=== PATIENT | female | born 1995 | race Caucasian/White ===

== ENCOUNTER 2017-05-17 12:15 | Emergency (ER) | payer BC ==
[2017-05-17] MEDS ORDERED: IBUPROFEN 600 MG TABLET (FP) PO ONE ×2 (12:20→12:50)
[2017-05-17 12:28] VITALS: BP 127/74; PULSE 83; TEMP 98.3; BMI 26.5
--- NOTE | 2017-05-17 12:51 | PDOC ---
History of Present Illness - General Chief Complaint: Injury Stated Complaint: RIGHT SHOULDER INJURY Time Seen by Provider: 05/17/17 12:16 History Source: Patient Exam Limitations: No Limitations - History of Present Illness Initial Comments: 05/17/17 12:50 21-year-old female with a history of ALL here today complaining of right shoulder pain following injury 1 week ago. Patient states she was using an exercise machine and pain to the lateral aspect of her right shoulder on the equipment. Had minimal pain initially but over the last week pain has become more intense. Pain is exacerbated by elevating her arm in abduction and anteriorly today noted she had a pinching or sharp pain radiating up the trapezius muscle towards her neck denies any new weakness or numbness no elbow or wrist pain. No previous surgery on that shoulder other injuries in the past. Patient did not repeat for. Prior to arrival no associated swelling or ecchymosis fevers or chills. Past History - Past Medical History Allergies/Adverse Reactions: Allergies Allergy/AdvReac Type Severity Reaction Status Date / Time morphine Allergy Severe Difficulty Verified 07/27/16 11:48 Breathing Home Medications: Ambulatory Orders Lo Loestrin Fe 1-10 Tablet 1 tab PO DAILY 05/27/16 Ibuprofen [Motrin -] 600 mg PO TID #90 tablet 05/17/17 Cancer: Yes (ALL BONE MARROW TRANSPLANT) COPD: No - Immunization History Immunization Up to Date: Yes - Suicide/Smoking/Psychosocial Hx Smoking History: Never smoked Information on smoking cessation initiated: No Hx Alcohol Use: No Drug/Substance Use Hx: No Substance Use Type: None Review of Systems - Review of Systems Constitutional: No: Chills Respiratory: No: Cough, Orthopnea Cardiac (ROS): No: Chest Pain ABD/GI: No: Abdominal Distended Musculoskeletal: Yes: Joint Pain Integumentary: No: Bruising, Change in Color All Other Systems: Reviewed and Negative *Physical Exam - Vital Signs Last Vital Signs Temp Pulse Resp BP Pulse Ox 98.3 F 83 16 127/74 99 05/17/17 12:16 05/17/17 12:16 05/17/17 12:16 05/17/17 12:16 05/17/17 12:16 - Physical Exam Comments: 05/17/17 12:52 No acute distress awake and alert. Lungs are clear bilaterally. Heart is regular without any murmurs rubs or gallops. Abdomen is soft and nontender. Musculoskeletal: Right shoulder has anterior before meals joint tenderness to palpation. And lateral tenderness to palpation pain elicited at 90 abduction. Some pain with rotation. No associated ecchymosis or swelling no warmth. Elbow/ wrist FROM, NT. Distally neurovascularly intact ED Treatment Course - ADDITIONAL ORDERS Additional order review: Laboratory Results 05/17/17 12:28 Urine HCG, Qual Negative - RADIOLOGY Radiology Studies Ordered: Category Date Time Status SHOULDER-RIGHT [RAD] Stat Radiology 05/17/17 12:20 Ordered Medical Decision Making - Medical Decision Making 05/17/17 12:53 Status post right shoulder injury 1 week ago with pain in abduction and minimal tenderness on exam. Differential includes ac joint separation or tear or possible rotator cuff injury. We'll obtain x-rays to rule out fracture, pain control, and likely outpatient orthopedic follow-up. NSAIDs for treatment of pain *DC/Admit/Observation/Transfer Diagnosis at time of Disposition: Shoulder injury - Discharge Dispostion Disposition: HOME Condition at time of disposition: Improved - Prescriptions Prescriptions: Ibuprofen [Motrin -] 600 mg PO TID #90 tablet - Referrals Referrals: Boogie Trevino MD [Staff Physician] - - Patient Instructions Printed Discharge Instructions: Shoulder Sprain Additional Instructions: you should follow-up with orthopedist call Dr. Trevino call to schedule . You can take ibuprofen 600 mg every 8 hours as needed for pain. Avoid heavy lifting or activities which exacerbate your pain. Your x-rays are negative for any bony injuries. Return for any problems or concerns - Post Discharge Activity
== END 2017-05-17 13:26 | disposition home or self-care (01) ==
LOC: FER 12:15
DX: M25.511 Pain in right shoulder (principal); Z85.9 Personal history of malignant neoplasm, unspecified
CPT/HCPCS: 73030-TC-RT; 84703; 99282-25

== ENCOUNTER 2017-07-12 10:24 | Emergency (ER) | payer BC ==
[2017-07-12 10:55] VITALS: BP 120/71; PULSE 79; TEMP 97.8; BMI 19.2
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
[2017-07-12] MEDS ORDERED: ACETAMINOPHEN 325 MG TABLET (FP) PO ONE (12:04)
[2017-07-12] MEDS ORDERED: ACETAMINOPHEN 325 MG TABLET (FP) ONE (12:38)
== END 2017-07-12 13:27 | disposition home or self-care (01) ==
LOC: FER 10:24
DX: J34.89 Other specified disorders of nose and nasal sinuses (principal); W20.8XXA Other cause of strike by thrown, projected or falling object, initial encounter; Y93.89 Activity, other specified; Y92.9 Unspecified place or not applicable
CPT/HCPCS: 70486-TC; 84703; 99282-25

== ENCOUNTER 2017-08-25 01:23 | Emergency (ER) | payer BC ==
[2017-08-25 01:50] VITALS: BP 136/82; PULSE 97; TEMP 98.5; BMI 26.4
[2017-08-25] MEDS ORDERED: IBUPROFEN 600 MG TABLET (FP) PO ONE ×2 (01:55→02:46)
--- NOTE | 2017-08-25 01:55 | PDOC ---
History of Present Illness - General Chief Complaint: Chest Pain Stated Complaint: CHEST PAIN Time Seen by Provider: 08/25/17 01:42 - History of Present Illness Initial Comments: 08/25/17 02:09 The patient is a 21 year old female with a history of Leukemia s/p bone marrow transplant who presents for evaluation of chest pain. The patient reports onset of chest tightness and sharp sternal chest pain earlier this evening prompting her presentation to the ED for evaluation. 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 She notes that the pain is worse with certain movements. She otherwise denies fevers, chills, SOB, nausea, vomiting, abdominal pain, leg swelling, recent long travel, or changes with urination or bowel movements. Past History - Past Medical History Allergies/Adverse Reactions: Allergies Allergy/AdvReac Type Severity Reaction Status Date / Time morphine Allergy Severe Difficulty Verified 08/25/17 01:47 Breathing Home Medications: Ambulatory Orders Lo Loestrin Fe 1-10 Tablet 1 tab PO DAILY 05/27/16 Cancer: Yes (ALL BONE MARROW TRANSPLANT) COPD: No - Immunization History Immunization Up to Date: Yes - Suicide/Smoking/Psychosocial Hx Smoking History: Never smoked Have you smoked in the past 12 months: No Information on smoking cessation initiated: No Hx Alcohol Use: No Drug/Substance Use Hx: No Substance Use Type: None Review of Systems - Review of Systems Comments:: 08/25/17 02:11 Constitutional: No fevers, chills, fatigue, malaise HEENT: No Rhinorrhea, nasal congestion, visual changes Cardiovascular: Chest pain. No syncope, palpitations, lightheadedness Respiratory: No Cough, SOB, Hemoptysis, Gastrointestinal: No Abdominal pain, Nausea, Vomiting, Constipation, Diarrhea, Melena Genitourinary: No Dysuria, Frequency, Urgency, Hesitancy, Hematuria, Flank pain Musculoskeletal: No Myalgia, arthralgia Skin: No rashes, itching, bruising, pallor Neurologic: No Headache, Dizziness, Numbness, Weakness, or Tingling Psychiatric: No Hallucinations. No SI or HI *Physical Exam - Vital Signs Last Vital Signs Temp Pulse Resp BP Pulse Ox 98.5 F 97 H 20 136/82 96 08/25/17 01:47 08/25/17 01:47 08/25/17 01:47 08/25/17 01:47 08/25/17 01:47 - Physical Exam Comments: 08/25/17 02:11 General Appearance: Nourished. No Apparent Distress HEENT: No Pharyngeal Erythema, Tonsillar Exudate, Tonsillar Erythema Neck: No Cervical Lymphadenopathy Respiratory/Chest: Lungs Clear, Normal Breath Sounds. No Crackles, Rales, Rhonchi, Wheezing Cardiovascular: Regular Rhythm, Regular Rate. Reproducible tenderness to palpation along the sternal border. No Murmur, Gallops, Rubs Gastrointestinal/Abdominal: Normal Bowel Sounds, Soft. No Guarding, Rebound, Tenderness Musculoskeletal: No CVA Tenderness Extremity: Normal Capillary Refill Integumentary: Normal Color, Dry, Warm Neurologic: Fully Oriented, Alert, Normal Mood/Affect, Normal Response, Heart Score/ECG Review #1 ECG reviewed & interpreted by me at: 02:12 General ECG Interpretation: Sinus Rhythm, Normal Rate, Normal Intervals, No acute ischemic changes ED Treatment Course - LABORATORY CBC & Chemistry Diagram: 08/25/17 02:57 08/25/17 02:57 - RADIOLOGY Radiology Studies Ordered: Category Date Time Status CHEST PA & LAT [RAD] Stat Radiology 08/25/17 01:54 Ordered Medical Decision Making - Medical Decision Making 08/25/17 02:12 The patient is a 21 year old female with a history of Leukemia s/p bone marrow transplant who presents for evaluation of chest pain. Differential includes but is not limited to: Musculoskeletal, costocondritis, acs, pe, infectious, metabolic derangement. Given the patient's physical exam with reproducible tenderness, it is likely the patient's symptoms are due to a costochondritis. However we will obtain a cbc, cmp, troponin, d-dimer, ekg, and chest plain film to evaluate further. We will treat the patient with ibuprofen in the meantime and continue to monitor and reassess. 08/25/17 03:48 CBC, cmp, troponin, d-dimer are unremarkable. Chest plain film is unremarkable as preliminarily read by ER physician. It is likely the patient's symptoms are due to costochondritis. We are comfortable discharging the patient home at this time with primary care provider follow up. We discussed the results and the plan as well as return precautions with the patient who voiced understanding and is agreeable with the plan. *DC/Admit/Observation/Transfer Diagnosis at time of Disposition: Costochondritis - Discharge Dispostion Disposition: HOME Condition at time of disposition: Good Admit: No - Referrals Referrals: ON STAFF,NOT [Primary Care Provider] - - Patient Instructions Printed Discharge Instructions: DI for Costochondritis Additional Instructions: Please return to the ER if you experience concerning or worsening symptoms including worsening chest pain, difficulty breathing, or vomiting. Your lab results were normal here in the ER. It is likely your pain is due to musculoskeletal pain or costochondritis. You may use ibuprofen as needed at home to help manage your pain. Please call to schedule a follow up appointment with your primary care provider within 2-3 days to discuss your ER visit and further management of your symptoms. - Post Discharge Activity
[2017-08-25 03:11] LABS: BASO % 1.1 % (0-2.0); EOS % 0.4 % (0-4.5); HEMATOCRIT 40.6 % (32.4-45.2); HEMOGLOBIN 14.3 GM/dL (10.7-15.3); LYMPH % 24.9 % (8-40); MCHC 35.1 g/dl (32.0-36.0); MEAN CELL VOLUME 88.4 fl (80-96); MONO % 7.1 % (3.8-10.2); NEUT % 66.5 % (42.8-82.8); PLATELET COUNT 357 K/MM3 (134-434); RBC 4.59 M/mm3 (3.60-5.2); RDW 13.1 % (11.6-15.6); WHITE BLOOD COUNT 11.7 K/mm3 (4.0-10.0)
[2017-08-25 03:36] LABS: ANION GAP 13 (8-16); BILIRUBIN,TOTAL 0.4 mg/dL (0.2-1.0); BLOOD UREA NITROGEN 13 mg/dL (7-18); CALCIUM 8.9 mg/dL (8.5-10.1); CHLORIDE 108 mmol/L (98-107); CO2 22 mmol/L (21-32); CREATININE 0.7 mg/dL (0.55-1.02); GLUCOSE,RANDOM 73 mg/dL (74-106); POTASSIUM 3.5 mmol/L (3.5-5.1); SGOT/AST 11 U/L (15-37); SGPT/ALT 14 U/L (12-78); SODIUM 143 mmol/L (136-145); TOT PROT 7.4 g/dl (6.4-8.2)
[2017-08-25 03:38] LABS: ALK PHOS 65 U/L (45-117)
--- NOTE | 2017-08-25 16:39 | EKG ---
Test Reason : Blood Pressure : / mmHG Vent. Rate : 070 BPM Atrial Rate : 070 BPM P-R Int : 144 ms QRS Dur : 080 ms QT Int : 378 ms P-R-T Axes : 043 083 054 degrees QTc Int : 408 ms NORMAL SINUS RHYTHM WITH SINUS ARRHYTHMIA NORMAL ECG NO PREVIOUS ECGS AVAILABLE Confirmed by TINY BENSON, JANENE ([id number]) on 08/25/2017 4:39:02 PM Referred By: Confirmed By:JANENE FRANKS MD
== END 2017-08-25 04:01 | disposition home or self-care (01) ==
LOC: JER 01:23
DX: M94.0 Chondrocostal junction syndrome [Tietze] (principal); Z85.6 Personal history of leukemia
CPT/HCPCS: 36415; 71046-TC-FY; 80053; 82550; 84484; 84703; 85025; 85379; 93005; 93010; 99283-25

== ENCOUNTER 2017-09-28 15:44 | Emergency (ER) | payer BC ==
--- NOTE | 2017-09-28 16:04 | PDOC ---
Rapid Medical Evaluation Time Seen by Provider: 09/28/17 16:02 Medical Evaluation: Allergies Allergy/AdvReac Type Severity Reaction Status Date / Time morphine Allergy Severe Difficulty Verified 08/25/17 01:47 Breathing 09/28/17 16:03 I have performed a brief in-person evaluation of this patient. The patient presents with a chief complaint of: mid abd pain x 3 days, vomiting 6 days, went to urgent care, has RLQ tenderness today, r/o appy Pertinent physical exam findings: RLQ tenderness I have ordered the following: labs, urine, us The patient will proceed to the ED for further evaluation. Discharge Disposition - Diagnosis Abdominal pain - Referrals - Patient Instructions - Post Discharge Activity
[2017-09-28] MEDS ORDERED: ONDANSETRON *ODT* 4 MG TABLET SL ONE (16:05)
[2017-09-28 16:09] VITALS: TEMP 98.2; BMI 25.6
[2017-09-28] MEDS ORDERED: ONDANSETRON *ODT* 4 MG TABLET ONE (16:24)
[2017-09-28 16:30] LABS: BASO % 0.8 % (0-2.0); EOS % 0.5 % (0-4.5); HEMATOCRIT 40.3 % (32.4-45.2); HEMOGLOBIN 14.2 GM/dL (10.7-15.3); LYMPH % 23.8 % (8-40); MCHC 35.3 g/dl (32.0-36.0); MEAN CELL VOLUME 87.9 fl (80-96); MEAN PLT VOLUME 8.2 fl (7.5-11.1); NEUT % 67.9 % (42.8-82.8); PLATELET COUNT 366 K/MM3 (134-434); RBC 4.58 M/mm3 (3.60-5.2); RDW 13.1 % (11.6-15.6); WHITE BLOOD COUNT 7.9 K/mm3 (4.0-10.0)
[2017-09-28 17:01] LABS: ALBUMIN 4.3 g/dl (3.4-5.0); ALK PHOS 64 U/L (45-117); ANION GAP 6 (8-16); BILIRUBIN,TOTAL 0.5 mg/dL (0.2-1.0); BLOOD UREA NITROGEN 14 mg/dL (7-18); CALCIUM 9.3 mg/dL (8.5-10.1); CHLORIDE 109 mmol/L (98-107); CO2 26 mmol/L (21-32); CREATININE 0.7 mg/dL (0.55-1.02); GLUCOSE,RANDOM 84 mg/dL (74-106); POTASSIUM 3.8 mmol/L (3.5-5.1); SGOT/AST 12 U/L (15-37); SGPT/ALT 14 U/L (12-78); SODIUM 141 mmol/L (136-145); TOT PROT 7.5 g/dl (6.4-8.2)
[2017-09-28 17:57] LABS: URINE APPEARANCE CLEAR; URINE BILIRUBIN NEGATIVE (<2.0 mg/dL); URINE BLOOD NEGATIVE (NEGATIVE); URINE COLOR YELLOW; URINE GLUCOSE (UA) NEGATIVE (NEGATIVE); URINE KETONE TRACE (NEGATIVE); URINE LEUK ESTERASE NEGATIVE (NEGATIVE); URINE NITRITE NEGATIVE (NEGATIVE); URINE PROTEIN NEGATIVE (NEGATIVE); URINE UROBILINOGEN NEGATIVE mg/dL (0.2-1.0)
--- NOTE | 2017-09-28 19:13 | PDOC ---
History of Present Illness - General Chief Complaint: Pain, Acute Stated Complaint: ABD PAIN, NAUSEA Time Seen by Provider: 09/28/17 16:02 History Source: Patient - History of Present Illness Initial Comments: 09/28/17 20:16 21-year-old complaining of right lower quadrant pain for 1 day. Patient reports for the last 6 days she's been having nausea vomiting and poor appetite. Patient denies fevers/chills/urinary symptoms. Patient currently on control and does not get her menstrual period. Past medical history of ALL currently in remission. Past History - Past Medical History Allergies/Adverse Reactions: Allergies Allergy/AdvReac Type Severity Reaction Status Date / Time morphine Allergy Severe Difficulty Verified 09/28/17 16:07 Breathing Home Medications: Ambulatory Orders Norethindrone-E.estradiol-Iron [Lo Loestrin Fe 1-10 Tablet] 1 tab PO DAILY 09/28 Ondansetron HCl [Zofran] 4 mg PO TID PRN #10 tablet 09/28/17 Oxycodone HCl/Acetaminophen [Percocet 5-325 mg Tablet] 1 tab PO Q6H PRN #7 tablet MDD 4 09/28/17 Anemia: No Asthma: No Cancer: Yes (ALL BONE MARROW TRANSPLANT) Cardiac Disorders: No CVA: No COPD: No DVT: No Dementia: No Diabetes: No Dialysis: No GI Disorders: No Disorders: No HTN: No Hypercholesterolemia: No Kidney Stones: No Liver Disease: No Psychiatric Problems: No Seizures: No Thyroid Disease: No Lung CA: No - Immunization History Immunization Up to Date: Yes - Suicide/Smoking/Psychosocial Hx Smoking History: Never smoked Have you smoked in the past 12 months: No Information on smoking cessation initiated: No Hx Alcohol Use: No Drug/Substance Use Hx: No Substance Use Type: None Review of Systems - Review of Systems Able to Perform ROS?: Yes Is the patient limited [place] proficient: No Constitutional: No: Symptoms Reported, See HPI, Chills, Diaphoresis, Fever, Loss of Appetite, Malaise, Night Sweats, Weakness, Weight Stable, Unintentional Wgt. Loss, Unexplained wgt Loss, Other ABD/GI: Yes: Nausea, Poor Appetite, Vomiting, Abdominal cramping. No: Symptoms Reported, See HPI, Abdominal Distended, Abd. Pain w/ defecation, Blood Streaked Bowels, Constipated, Diarrhea, Difficulty Swallowing, Poor Fluid Intake, Rectal Bleeding, Indigestion, Tarry Stools, Other : No: Symptoms Reported, See HPI, Burning, Dysuria, Discharge, Frequency, Flank Pain, Hematuria, Incontinence, Pain, Urgency, Testicular Mass, Testicular Swelling, Lesions, Testicular Pain, Other *Physical Exam - Vital Signs Last Vital Signs Temp Pulse Resp BP Pulse Ox 98.2 F 61 16 119/66 100 09/28/17 16:03 09/28/17 16:03 09/28/17 16:03 09/28/17 16:03 09/28/17 16:03 - Physical Exam General Appearance: Yes: Appropriately Dressed Respiratory/Chest: positive: Lungs Clear, Normal Breath Sounds Gastrointestinal/Abdominal: positive: Normal Bowel Sounds, Tender (RLQ tenderness. ), Soft Musculoskeletal: positive: Normal Inspection Extremity: positive: Normal Capillary Refill, Normal Inspection, Normal Range of Motion Integumentary: positive: Normal Color, Dry, Warm Neurologic: positive: interstate planner II-XII NML intact, Fully Oriented, Alert, Normal Mood/ Affect ED Treatment Course - LABORATORY CBC & Chemistry Diagram: 09/28/17 16:18 09/28/17 16:18 - ADDITIONAL ORDERS Additional order review: Laboratory Results 09/28/17 09/28/17 09/28/17 17:30 17:30 16:18 Sodium Potassium Chloride Carbon Dioxide Anion Gap BUN Creatinine Creat Clearance w eGFR Random Glucose Calcium Total Bilirubin AST ALT Alkaline Phosphatase Total Protein Albumin Lipase 145 Urine Color Yellow Urine Appearance Clear Urine pH 5.0 Ur Specific [place] 1.027 Urine Protein Negative Urine Glucose (UA) Negative Urine Ketones Trace H Urine Blood Negative Urine Nitrite Negative Urine Bilirubin Negative Urine Urobilinogen Negative Ur Leukocyte Esterase Negative Urine HCG, Qual Negative 09/28/17 16:18 Sodium 141 Potassium 3.8 Chloride 109 H Carbon Dioxide 26 Anion Gap 6 L BUN 14 Creatinine 0.7 Creat Clearance w eGFR > 60 Random Glucose 84 Calcium 9.3 Total Bilirubin 0.5 D AST 12 L ALT 14 Alkaline Phosphatase 64 Total Protein 7.5 Albumin 4.3 Lipase Urine Color Urine Appearance Urine pH Ur Specific [place] Urine Protein Urine Glucose (UA) Urine Ketones Urine Blood Urine Nitrite Urine Bilirubin Urine Urobilinogen Ur Leukocyte Esterase Urine HCG, Qual 09/28/17 16:18 RBC 4.58 MCV 87.9 MCHC 35.3 RDW 13.1 MPV 8.2 Neutrophils % 67.9 Lymphocytes % 23.8 Monocytes % 7.0 Eosinophils % 0.5 Basophils % 0.8 - Medications Given in the ED: ED Medications Discontinued Medications Generic Name Dose Route Start Last Admin Trade Name Freq PRN Reason Stop Dose Admin Ondansetron HCl 4 mg 09/28/17 16:05 09/28/17 16:26 Zofran Odt - SL 09/28/17 16:06 4 mg ONCE ONE Administration Medical Decision Making - Medical Decision Making 09/28/17 20:19 RLQ pain P: cbc cmp ua UCX pelvic US: cannot visualize the appendix. will CTAP with IV contrast. 09/28/17 22:22 patient with cholelithiasis. pain RUQ/ RLQ mild tenderness *DC/Admit/Observation/Transfer Diagnosis at time of Disposition: Abdominal pain Qualifiers: Abdominal location: right lower quadrant Qualified Code(s): R10.31 - Right lower quadrant pain Cholelithiasis Qualifiers: Cholelithiasis location: gallbladder Cholecystitis presence: without cholecystitis Biliary obstruction: without biliary obstruction Qualified Code(s) : K80.20 - Calculus of gallbladder without cholecystitis without obstruction - Discharge Dispostion Disposition: HOME - Prescriptions Prescriptions: Ondansetron HCl [Zofran] 4 mg PO TID PRN #10 tablet PRN Reason: Nausea Oxycodone HCl/Acetaminophen [Percocet 5-325 mg Tablet] 1 tab PO Q6H PRN #7 tablet MDD 4 PRN Reason: Pain - Referrals Referrals: Fredy Reyes MD [Staff Physician] - Call tomorrow - Patient Instructions Printed Discharge Instructions: Gallstones Additional Instructions: drink plenty of fluids you were noted to have gall stones. follow up with a gasteroenterologist as soon as possible. Additional Instructions: * Please call your personal physician to report your Emergency Department visit and to report your progress, if any. * If there is no improvement in symptoms in 2 days call your physician. * Return to the Emergency Department for any worsening symptoms. - Post Discharge Activity Forms/Work/School Notes: Back to School
[2017-09-28] MEDS ORDERED: ACETAMINOPHEN 1000 MG/100 ML VIAL (NON FORMULARY) IVPB ONE (19:18)
[2017-09-28] MEDS ORDERED: ACETAMINOPHEN INJECTION 100 ML IVPB ONE (19:30)
[2017-09-28] MEDS ORDERED: SODIUM CHLORIDE 1,000 ML IV STA (20:19)
[2017-09-28] MEDS ORDERED: KETOROLAC TROMETHAMINE 30 MG/1 ML VIAL ONE (21:34)
[2017-09-28] MEDS ORDERED: KETOROLAC TROMETHAMINE 30 MG/1 ML VIAL IVPUSH ONE (21:34)
[2017-09-28] MEDS ORDERED: ONDANSETRON 4 MG/2 ML VIAL IVPUSH ONE (21:34)
[2017-09-28] MEDS ORDERED: ONDANSETRON 4 MG/2 ML VIAL ONE (21:36)
[2017-09-28 22:39] VITALS: BP 122/76; PULSE 82
== END 2017-09-28 22:38 | disposition home or self-care (01) ==
LOC: JER 15:44
PROC: 3E0337Z Introduction of Electrolytic and Water Balance Substance into Peripheral Vein, Percutaneous Approach (ICD-10-PCS; principal; 2017-09-28)
PROC: 3E0333Z Introduction of Anti-inflammatory into Peripheral Vein, Percutaneous Approach (ICD-10-PCS; 2017-09-28)
PROC: 3E033GC Introduction of Other Therapeutic Substance into Peripheral Vein, Percutaneous Approach (ICD-10-PCS; 2017-09-28)
PROC: 3E033NZ Introduction of Analgesics, Hypnotics, Sedatives into Peripheral Vein, Percutaneous Approach (ICD-10-PCS; 2017-09-28)
DX: K80.20 Calculus of gallbladder without cholecystitis without obstruction (principal); R10.31 Right lower quadrant pain
CPT/HCPCS: 36415; 74177-TC; 76856-TC; 80053; 81003; 83690; 84703; 85025; 87086; 99283-25; J0131; J7030; Q0162

== ENCOUNTER 2018-03-14 18:23 | Emergency (ER) | payer BC ==
[2018-03-14 18:51] VITALS: BP 116/88; PULSE 70; TEMP 98.6; BMI 25.4
--- NOTE | 2018-03-14 19:16 | PDOC ---
History of Present Illness - General History Source: Unavil. due to pt. cond. - History of Present Illness Initial Comments: 03/14/18 19:35 The patient is a 22 year old female with a significant past medical history of ALL s/p chemo, radiation, and bone marrow transplant in remission for 14 years who presents to the ER with right sided abdominal pain for the past two days. Patient states the pain today was sharp prompting her to come for an evaluation. The patient also reports following up with a horizontal boring mill operator, who told her everything looked normal. Patient also saw a GI doctor who told her she may need an endoscopy but there was no appointment available until a month from now. Patient did not have an appetite today secondary to her abdominal pain. Patient endorses chills but denies fever, nausea, vomit, diarrhea, and constipation. Denies dysuria, frequency, urgency, and hematuria. Allergies: morphine Past surgical history: bone marrow transplant Social history: No reported alcohol, drug or cigarette use. Adult ROS General: No fevers or chills, no weakness, no weight loss HEENT: No change in vision. No sore throat,. No ear pain CardioVascular: No chest pain or shortness of breath Respiratory:No cough, or wheezing. Gastrointestinal: (+) right sided abdominal pain. no nausea, vomiting, diarrhea or constipation, No rectal bleeding Genitourinary: No dysuria, hematuria, or frequency Musculoskeletal: No joint or muscle pain or swelling Neurologic: No headache, vertigo, dizziness or loss of consciousness Psychiatric: nor depression Skin: No rashes or easy bruising Endocrine: no increased thirst or abnormal weight change Allergic: no skin or latex allergy All other systems reviewed and normal Adult Exam: General: Well-nourished well-developed individual, no acute distress HEENT: Throat: Normal, tonsils normal, no erythema or exudate Neck: Supple, no meningeal signs, no lymphadenopathy Eyes::Pupils equal reactive and round, extraocular motion intact Chest: Nontender to palpation Cardiac: S1-S2 normal, regular rate and rhythm, no murmurs rubs or gallops Respiratory: Lungs clear to auscultation bilateral Abdomen: Soft, nondistended, normal bowel sounds. (+)Tender to the right side of her abdomen, more pronounced on the right lower quadrant. Extremities: Warm, dry, no cyanosis, clubbing, or edema Skin: No rashes Neuro: Alert and oriented x3, nonfocal exam, grossly intact, normal gait Psych: Normal mood and affect <Keysha Perales - Last Filed: 03/14/18 19:38> - General History Source: Patient Exam Limitations: No Limitations - History of Present Illness Initial Comments: 03/14/18 20:22 A portion of this note was documented by scribe services under my direction. I have reviewed the details of the note, within reason, and agree with the documentation. The case summary and management plan written by me. Assessment and plan: This is a 22-year-old female who comes in complaining of 2 days of abdominal pain. Patient was seen by her [facility] NURSE today and was told that it is not ovarian or UM NURSE in origin. Patient also saw her GI doctor who thought it may be a retained gallstone however he said he was unable to scope her in until next week. Patient now comes to the ED for continuing pain and further evaluation. A workup was initiated including CBC, comp, CAT scan of abdomen and pelvis, urine, urine test. 03/14/18 21:43 Patient's CAT scan was negative for any acute pathology symmetrically appendix was normal, gallbladder is absent but noted ductal dilatation and no other acute pathology. Patient's white count was normal and there was no left shift Patient's urinalysis was normal Patient's chemistries were normal Patient given copies of her blood work and CAT scan and discharged home. I gave patient a dose of hyoscyamine here in the ED and sent a prescription to her pharmacy for additional tablets as there does appear to be a crampy nature to her pain <Justina Owusu I - Last Filed: 03/14/18 21:46> - General Chief Complaint: Pain Stated Complaint: ABD PAIN Time Seen by Provider: 03/14/18 19:15 Past History <Keysha Perales - Last Filed: 03/14/18 19:38> - Past Medical History Anemia: No Asthma: No Cancer: Yes (ALL BONE MARROW TRANSPLANT) Cardiac Disorders: No CVA: No COPD: No DVT: No Dementia: No Diabetes: No Dialysis: No GI Disorders: No Disorders: No HTN: No Hypercholesterolemia: No Kidney Stones: No Liver Disease: No Psychiatric Problems: No Seizures: No Thyroid Disease: No Lung CA: No - Surgical History Cholecystectomy: Yes - Immunization History Immunization Up to Date: Yes - Suicide/Smoking/Psychosocial Hx Smoking History: Never smoked Have you smoked in the past 12 months: No Information on smoking cessation initiated: No Hx Alcohol Use: No Drug/Substance Use Hx: No Substance Use Type: None <Justina Owusu I - Last Filed: 03/14/18 21:46> - Past Medical History Allergies/Adverse Reactions: Allergies Allergy/AdvReac Type Severity Reaction Status Date / Time morphine Allergy Severe Difficulty Verified 03/14/18 18:24 Breathing Home Medications: Ambulatory Orders Norethindrone-E.estradiol-Iron [Lo Loestrin Fe 1-10 Tablet] 1 tab PO DAILY 09/28 Hyoscyamine Odt [Levsin Odt -] 0.125 mg PO BID #10 tab.rapdis 03/14/18 *Physical Exam - Vital Signs Last Vital Signs Temp Pulse Resp BP Pulse Ox 98.6 F 70 18 116/88 100 03/14/18 18:23 03/14/18 18:23 03/14/18 18:23 03/14/18 18:23 03/14/18 18:23 <Keysha Perales - Last Filed: 03/14/18 19:38> - Vital Signs Last Vital Signs Temp Pulse Resp BP Pulse Ox 98.6 F 70 18 116/88 100 03/14/18 18:23 03/14/18 18:23 03/14/18 18:23 03/14/18 18:23 03/14/18 18:23 <Justina Owusu I - Last Filed: 03/14/18 21:46> ED Treatment Course - ADDITIONAL ORDERS Additional order review: Laboratory Results 03/14/18 19:19 Urine HCG, Qual Negative <Keysha Perales - Last Filed: 03/14/18 19:38> - LABORATORY CBC & Chemistry Diagram: 03/14/18 19:40 03/14/18 19:30 <Justina Owusu I - Last Filed: 03/14/18 21:46> *DC/Admit/Observation/Transfer <Keysha Perales - Last Filed: 03/14/18 19:38> - Discharge Dispostion Decision to Admit order: No <Justina Owusu I - Last Filed: 03/14/18 21:46> Diagnosis at time of Disposition: Abdominal pain Qualifiers: Abdominal location: lower abdomen, unspecified Qualified Code(s): R10.30 - Lower abdominal pain, unspecified - Discharge Dispostion Disposition: HOME Condition at time of disposition: Stable - Prescriptions Prescriptions: Hyoscyamine Odt [Levsin Odt -] 0.125 mg PO BID #10 tab.rapdis - Patient Instructions Additional Instructions: For the pain you can take hyoscyamine one tablet as often as twice a day this is for crampy abdominal pain. Call your GI doctor in follow-up with your GI doctor if symptoms persist. Return to the emergency department immediately with ANY new, persistent or worsening symptoms. Continue any medications as previously prescribed by your physician. You should follow up with your primary doctor as soon as possible regarding today's emergency department visit. . Please make sure your doctor reviews the results of your emergency evaluation. Thank you for coming to the Emergency Department today for your care. It was a pleasure to see you today. Please note that your evaluation is INCOMPLETE until you follow-up with your doctor.
[2018-03-14] MEDS ORDERED: SODIUM CHLORIDE 1,000 ML IV ONE (19:28)
[2018-03-14 19:29] LABS: HCG,QUALITATIVE URINE Negative
[2018-03-14 19:36] LABS: URINE APPEARANCE Clear; URINE BILIRUBIN Negative (NEGATIVE); URINE COLOR Yellow; URINE GLUCOSE (UA) Negative (NEGATIVE); URINE KETONE Negative (NEGATIVE); URINE LEUK ESTERASE Negative (NEGATIVE); URINE NITRITE Negative (NEGATIVE); URINE PROTEIN Negative (NEGATIVE); URINE UROBILINOGEN 0.2 (0.2-1.0)
[2018-03-14 20:15] LABS: ALBUMIN 4.5 g/dl (3.5-5.0); ALK PHOS 56 U/L (32-92); ANION GAP 6 MMOL/L (8-16); BILIRUBIN,TOTAL 0.9 mg/dl (0.2-1.0); BLOOD UREA NITROGEN 10 mg/dl (7-18); CALCIUM 8.9 mg/dl (8.4-10.2); CHLORIDE 105 mmol/L (98-107); CO2 26 mmol/L (22-28); CREATININE 0.7 mg/dl (0.6-1.3); GLUCOSE,RANDOM 82 mg/dl (74-106); POTASSIUM 3.7 mmol/L (3.5-5.1); SGOT/AST 20 U/L (10-42); SGPT/ALT 14 U/L (10-40); SODIUM 137 mmol/L (136-145); TOT PROT 7.7 g/dl (6.4-8.3)
[2018-03-14 20:16] LABS: BASO % 0.5 % (0-2.0); EOS % 0.5 % (0-4.5); HEMATOCRIT 42.8 % (32.4-45.2); HEMOGLOBIN 14.5 GM/dl (10.7-15.3); LYMPH % 27.6 % (8-40); MCH 30.4 pg (25.7-33.7); MCHC 33.8 g/dl (32.0-36.0); MONO % 5.6 % (3.8-10.2); NEUT % 65.8 % (42.8-82.8); PLATELET COUNT 372 K/MM3 (134-434); RBC 4.76 M/mm3 (3.60-5.2); RDW 12.1 % (11.6-15.6); WHITE BLOOD COUNT 6.7 K/mm3 (4.0-10.8)
[2018-03-14] MEDS ORDERED: HYOSCYAMINE SULFATE 0.125 MG *ODT ONE (21:39)
[2018-03-14] MEDS ORDERED: HYOSCYAMINE SULFATE 0.125 MG *ODT PO ONE (21:40)
== END 2018-03-14 21:48 | disposition home or self-care (01) ==
LOC: FER 18:23
PROC: 3E0337Z Introduction of Electrolytic and Water Balance Substance into Peripheral Vein, Percutaneous Approach (ICD-10-PCS; principal; 2018-03-14)
DX: R10.30 Lower abdominal pain, unspecified (principal); C91.00 Acute lymphoblastic leukemia not having achieved remission
CPT/HCPCS: 36415; 74177-TC; 80053; 81003; 84703; 85025; 87040; 87086; 99283-25; J7030

== ENCOUNTER 2020-08-21 10:04 | Emergency (ER) | payer BC ==
[2020-08-21 10:23] VITALS: BP 131/80; PULSE 98; TEMP 98.2; BMI 25.6
[2020-08-21 10:28] LABS: HCG,QUALITATIVE URINE Positive
[2020-08-21 11:08] LABS: EPITHELIAL CELLS MANY /hpf
== END 2020-08-21 12:00 | disposition home or self-care (01) ==
LOC: FER 10:04
DX: M79.604 Pain in right leg (principal)
CPT/HCPCS: 81003; 81015; 84703; 93971-TC; 99284-25

== ENCOUNTER 2022-02-07 12:19 | Emergency (ER) | payer BC ==
[2022-02-07] MEDS ORDERED: FAMOTIDINE 20 MG/50 ML IVPB 20 MG/50 ML MG IVPB ONE (12:31)
[2022-02-07] MEDS ORDERED: methylPREDNISolone NA SUCC 125 MG/2 ML VIAL IVPUSH ONE (12:31)
[2022-02-07] MEDS ORDERED: LACTATED RINGERS SOLUTION 1000 ML INFUS.BAG IV ONE (12:32)
[2022-02-07] MEDS ORDERED: methylPREDNISolone NA SUCC 125 MG/2 ML VIAL ONE (12:32)
[2022-02-07 13:15] VITALS: BP 129/48; PULSE 87; RESP 18; TEMP 98.9; BMI 26.2
== END 2022-02-07 13:40 | disposition home or self-care (01) ==
LOC: FER 12:19
PROC: 3E033GC Introduction of Other Therapeutic Substance into Peripheral Vein, Percutaneous Approach (ICD-10-PCS; principal; 2022-02-07)
PROC: 3E033GC Introduction of Other Therapeutic Substance into Peripheral Vein, Percutaneous Approach (ICD-10-PCS; 2022-02-07)
DX: T63.441A Toxic effect of venom of bees, accidental (unintentional), initial encounter (principal); Z91.030 Bee allergy status
CPT/HCPCS: 99284-25